=== PATIENT | female | born 1970 | race Caucasian/White ===

== ENCOUNTER 2016-11-24 14:03 | Emergency (ER) | payer BC ==
[~2016-11-24] VITALS: Ht 170.2 cm; Wt 105.0 kg
[~2016-11-24 14:03] MED LIST: AMOX-351 PO; CIPR-212 PO; OMEP40CA52 PO; RIZA10TA24 PO
--- OUTSIDE RECORDS SUMMARY | 2016-11-24 14:08 | XMS REPORT | Referral Summary ---
Author Author [facility] Organization [facility] Address Unknown Phone Unavailable Care Team Providers Care Metallurgical Or Materials Technician Name Role Phone Carol Pete Primary Care Physician [phone] Encounter VC Date(s): 04/14/16 - 04/14/16 [facility] [address] [place] [address] Discharge Diagnosis: UTI (urinary tract infection) Discharge Disposition: 01-Home or Self Care Attending Physician: Sonya French PA-C Admitting Physician: Sonya French PA-C Vital Signs Most recent to 1 oldest [Reference Range]: Temperature Tympanic 36.5 degC [36.6-38.1 degC] *LOW* (04/14/16 10:26 AM) Peripheral Pulse 64 bpm Rate [60-100 bpm] (04/14/16 10:26 AM) Respiratory Rate 18 br/min [14-20 br/min] (04/14/16 10:26 AM) Blood Pressure 92/68 mmHg [90-140/60-90 mmHg] (04/14/16 10:26 AM) Problem List Condition Effective Dates Status Health Status Informant Allergic rhinitis, Active unspecified(Confirme d) Chronic Active headache(Confirmed) Sinusitis, Active chronic(Confirmed) Thyroid Active disease(Confirmed) GERD without Active esophagitis(Confirme d) hx of proximal Active hydronephrosis(Confi rmed) Adult Active hypothyroidism(Confi rmed) Renal Active disease(Confirmed) Nephrolithiasis(Conf Active irmed) Migraine Active headaches(Confirmed) Obesity(Confirmed) Active patient hx of left Active ureterolithiasis and pain(Confirmed) Allergies, Adverse Reactions, Alerts No Known Allergies Medications Cipro 500 mg oral tablet 500 mg 1 tabs, Oral, q12hr, X 7 days, # 14 tabs, 0 Refill(s), Pharmacy: [facility] #[id number], 1 tabs Oral q12hr,x7 days Start Date: 04/14/16 Stop Date: 04/21/16 Status: Ordered Lyrica 50 mg oral capsule 50 mg 1 caps, Oral, Daily, # 21 caps, 0 Refill(s), samples given to patient (Rx) Start Date: 06/25/15 Status: Ordered Maxalt Oral, Daily, as directed, 0 Refill(s) Start Date: 05/03/15 Status: Ordered omeprazole 40 mg oral delayed release capsule 40 mg 1 caps, Oral, Daily, # 30 caps, 1 Refill(s), Pharmacy: [facility] # [id number], 1 caps Oral Daily,x30 days Start Date: 03/31/16 Stop Date: 05/30/16 Status: Ordered topiramate 25 mg oral tablet 25 mg 1 tabs, Oral, Daily, 0 Refill(s) Start Date: 05/03/15 Status: Ordered Results Urinalysis Most recent to 1 oldest [Reference Range]: UA Color Yellow (04/14/16 10:35 AM) UA Appear Sl Cloudy (04/14/16 10:35 AM) UA pH [5.0-8.0] 8.5 *HI* (04/14/16 10:35 AM) UA Leuk Est Pos 2+ [Negative] *ABN* (04/14/16 10:35 AM) UA Nitrite Negative [Negative] (04/14/16 10:35 AM) UA Protein Pos 1+ [Negative] *ABN* (04/14/16 10:35 AM) UA Glucose Negative [Negative] (04/14/16 10:35 AM) UA Ketones Negative [Negative] (04/14/16 10:35 AM) UA Urobilinogen 0.2 mg/dL [<=1.0 mg/dL] (04/14/16 10:35 AM) UA Bili [Negative] Negative (04/14/16 10:35 AM) UA Blood [Negative] Pos 3+ *ABN* (04/14/16 10:35 AM) UA Spec Grav 1.020 [1.003-1.030] (04/14/16 10:35 AM) Type Clean Catch (04/14/16 10:35 AM) UA WBC [0-4] 20-50 1 *ABN* (04/14/16 10:35 AM) UA RBC [0-2 /HPF] >50 /HPF *ABN* (04/14/16 10:35 AM) Epithelial Cells 20-50 *ABN* (04/14/16 10:35 AM) UA Bacteria Occasional *ABN* (04/14/16 10:35 AM) UA Mucous Present (04/14/16 10:35 AM) 1Result Comment: WBC in clumps noted. Immunizations Vaccine Date Refusal Reason pneumococcal 23-polyvalent vaccine 09/30/06 Procedures Procedure Date Related Diagnosis Body Site EGD 08/05/10 Cystoscopy, balloon dilatation, insertion of 12/20/08 L) dlb J stent Left lithotripsy 12/20/08 Repair of cystocele and rectocele 2004 Hysterectomy Social History Social History Type Response Smoking Status Never smoker Assessment and Plan Extracted from: Title: Ambulatory Patient Education Author: Sonya French PA-C Date : 04/14/16 Family [facility] Urinary Tract Infection Urinary tract infections (UTIs) can develop anywhere along your urinary tract. Your urinary tract is your body's drainage system for removing wastes and extra water. Your urinary tract includes two kidneys, two ureters, a bladder, and a urethra. Your kidneys are a pair of pacheco-shaped organs. Each kidney is about the size of your fist. They are located below your ribs, one on each side of your spine. CAUSES Infections are caused by microbes, which are microscopic organisms, including fungi, viruses, and bacteria. These organisms are so small that they can only be seen through a microscope. Bacteria are the microbes that most commonly cause UTIs. SYMPTOMS Symptoms of UTIs may vary by age and gender of the patient and by the location of the infection. Symptoms in young women typically include a frequent and intense urge to urinate and a painful, burning feeling in the bladder or urethra during urination. Older women and men are more likely to be tired, shaky , and weak and have muscle aches and abdominal pain. A fever may mean the infection is in your kidneys. Other symptoms of a kidney infection include pain in your back or sides below the ribs, nausea, and vomiting. DIAGNOSIS To diagnose a UTI, your caregiver will ask you about your symptoms. Your caregiver also will ask to provide a urine sample. The urine sample will be tested for bacteria and white blood cells. White blood cells are made by your body to help fight infection. TREATMENT Typically, UTIs can be treated with medication. Because most UTIs are caused by a bacterial infection, they usually can be treated with the use of antibiotics. The choice of antibiotic and length of treatment depend on your symptoms and the type of bacteria causing your infection. HOME CARE INSTRUCTIONS If you were prescribed antibiotics, take them exactly as your caregiver instructs you. Finish the medication even if you feel better after you have only taken some of the medication. Drink enough water and fluids to keep your urine clear or pale yellow. Avoid caffeine, tea, and carbonated beverages. They tend to irritate your bladder. Empty your bladder often. Avoid holding urine for long periods of time. Empty your bladder before and after sexual intercourse. After a bowel movement, women should cleanse from front to back. Use each tissue only once. SEEK MEDICAL CARE IF: You have back pain. You develop a fever. Your symptoms do not begin to resolve within 3 days. SEEK IMMEDIATE MEDICAL CARE IF: You have severe back pain or lower abdominal pain. You develop chills. You have nausea or vomiting. You have continued burning or discomfort with urination. MAKE SURE YOU: Understand these instructions. Will watch your condition. Will get help right away if you are not doing well or get worse. This information is not intended to replace advice given to you by your health care provider. Make sure you discuss any questions you have with your health care provider. Document Released: 06/03/2006 Document Revised: 09/14/2015 Document Reviewed: [facility] Patient Information 2016 [facility]. No follow up information was provided. Extracted from: Title: Office Visit Note- UTI Author: Sonya French PA-C Date: Assessment/Plan Urination frequency See below. Ordered: Office Visit Level 3 Est 39218 UTI (urinary tract infection) Will treat with Ciprox 1 week. Pt advised to monitor her pain. Possible tohave kidney stone as well. Offered pain medication, but pt would just like to take Advil. She is advised to goto ED if pain worsens. Push fluids. Ordered: Office Visit Level 3 Est 70127 Orders: ciprofloxacin, 500 mg 1 tabs, Oral, q12hr, X 7 days, # 14 tabs, 0 Refill(s), Pharmacy: [facility] #[id number], 1 tabs Oral q12hr,x7 days
--- OUTSIDE RECORDS SUMMARY | 2016-11-24 14:08 | XMS REPORT | Referral Summary ---
Author Author [facility] Organization [facility] Address Unknown Phone Unavailable Care Team Providers Care Experimental Mechanic Electrical Name Role Phone Carol Pete Primary Care Physician [phone] Encounter Date(s): 06/25/15 - 06/25/15 [facility] [address] [place] [address]- Discharge Diagnosis: Well woman exam with routine gynecological exam Discharge Diagnosis: Vaginal discharge Discharge Disposition: 01-Home or Self Care Attending Physician: Lisy Stevenson APRN Admitting Physician: Lisy Stevenson APRN Vital Signs Most recent to 1 oldest [Reference Range]: Peripheral Pulse 64 bpm Rate [60-100 bpm] (06/25/15 8:44 AM) Blood Pressure 84/52 mmHg [90-140/60-90 mmHg] *LOW* (06/25/15 8:44 AM) Problem List Condition Effective Dates Status Health Status Informant Chronic Active headache(Confirmed) GERD without Active esophagitis(Confirme d) Adult Active hypothyroidism(Confi rmed) Nephrolithiasis(Conf Active irmed) Obesity(Confirmed) Active patient Allergies, Adverse Reactions, Alerts No Known Allergies Medications Lyrica 50 mg oral capsule 50 mg 1 caps, Oral, Daily, # 21 caps, 0 Refill(s), samples given to patient (Rx) Start Date: 06/25/15 Status: Ordered Maxalt Oral, Daily, as directed, 0 Refill(s) Start Date: 05/03/15 Status: Ordered omeprazole 40 mg oral delayed release capsule See Instructions, TAKE ONE CAPSULE BY MOUTH DAILY Pt needs appointment for more refills, # 30 caps, 0 Refill(s), Pharmacy: [facility] #[id number], TAKE ONE CAPSULE BY MOUTH DAILY; Pt needs appointment for more refills Start Date: 12/26/15 Status: Ordered topiramate 25 mg oral tablet 25 mg 1 tabs, Oral, Daily, 0 Refill(s) Start Date: 05/03/15 Status: Ordered Results Microbiology Reports TEST: Genital Culture STATUS: Auth (Verified) BODY SITE: SOURCE: Vaginal COLLECTED DATE/TIME: 06/25/15 10:35 AM Genital Culture No pathogens isolated Normal vaginal eric present Immunizations No data available for this section Procedures Procedure Date Related Diagnosis Body Site Hysterectomy Social History Social History Type Response Smoking Status Never smoker Assessment and Plan No data available for this section
--- OUTSIDE RECORDS SUMMARY | 2016-11-24 14:08 | XMS REPORT | Referral Summary ---
Author Author [facility] Organization [facility] Address Unknown Phone Unavailable Care Team Providers Care Section Repairer Name Role Phone FelisasegunCarol calle Primary Care Physician [phone] Encounter Date(s): 06/25/15 - 06/25/15 [facility] [address] [place] [address]- Discharge Diagnosis: Well woman exam with routine [...] 0 Refill(s) Start Date: 05/03/15 Status: Ordered MetroGel-Vaginal 0.75% vaginal gel with applicator 1 marco, Vaginal, Bedtime (once a day), X 5 days, # 70 g, 0 Refill(s), Pharmacy: [facility] #[id number] Start Date: 06/25/15 Stop Date: 06/30/15 Status: Ordered omeprazole 40 mg oral delayed release capsule 40 mg 1 caps, Oral, Daily, # 90 caps, 1 Refill(s), Pharmacy: [facility] # [id number], 1 caps Oral Daily,x90 days Start Date: 05/03/15 Stop Date: 10/30/15 Status: Ordered topiramate 25 mg oral tablet 25 mg 1 tabs, Oral, Daily, 0 Refill(s) Start Date: 05/03/15 Status: Ordered Results No data available for this section Immunizations No data available for this section Procedures Procedure Date Related Diagnosis Body Site Hysterectomy Social History Social History Type Response Smoking Status Never smoker Assessment and Plan No data available for this section
--- OUTSIDE RECORDS SUMMARY | 2016-11-24 14:08 | XMS REPORT | Continuity of Care Document ---
Author Author [facility] Organization [facility] Address Unknown Phone Unavailable Support Name Relationship Address Phone SANJAY SOSA MD Caregiver [address] [place] [address] Unavailable SKINNY YU MD Caregiver [address] [place] [address] Unavailable CARLENE GOULD Next Of Kin [address] [place], [place] [id number] Insurance Providers Guarantor Shubham Sesay Address [address] [place] [address] Email [email or web address] Payer [employer] Other Policy Number [id number] Subscriber's Name Shubham Sesay Relationship 18 Self Group Number [id number] Chief Complaint and Reason for Visit Chief Complaint Abdominal Pain Reason for Visit Urinary tract infection Problems Active Problems Medical Problem Onset Date Status DIARRHEA, RECENT L KIDNEY STONE REMOVAL Unknown Acute Migraine Unknown Acute Past Problems Medical Problem Onset Date Urinary tract infection Unknown Medications Current Home Medications Medication Dose Units Route Directions Days Qty Instructions Start Date Amoxicillin/Potassium Clav (Augmentin 875-125 Tablet) 1 Each Tablet 1 Tab Oral Twice A Day 7 Days 14 Tablet TAKE WITH MEALS 04/15/16 Ciprofloxacin Hcl (Cipro) 500 Mg Tablet 500 Mg Oral Every 12 Hours 7 Days STARTING 04/14/16 04/15/16 Omeprazole 40 Mg Capsule. 40 Mg Oral Daily 11/26/15 Rizatriptan Benzoate (Maxalt) 10 Mg Tablet 10 Mg Oral As Needed as needed for Migraine Headache 11/26/15 Past Home Medications Medication Directions Ordered Status Ciprofloxacin Hcl (Cipro) 500 Mg Tablet, 500 Mg Oral Twice A Day 12/29/08 Discontinued Hydrocodone Bit/Acetaminophen (Lortab 7.5-500 Tablet) 1 Tab Tablet, 1 Tab Oral As Needed 12/20/08 Discontinued Hydrocodone Bit/Acetaminophen (Lortab 5) 1 Tab Tablet, 1 Tab Oral As Needed 12/29/08 Discontinued Levofloxacin (Levaquin) 750 Mg Tablet, 750 Mg Oral Daily 12/07/08 Discontinued Multi Vitamin , 12/07/08 Discontinued Phenazopyridine Hcl (Pyridium) 100 Mg Tablet, 100 Mg Oral Three Times A Day 12/29/08 Discontinued Social History Social History Problem Response Recorded Date/Time Onset Date Status Hx Substance Use No 04/15/2016 11:20am Not Applicable Not Applicable Hx Alcohol Use No 04/15/2016 11:20am Not Applicable Not Applicable Query Response Start Date Stop Date Smoking Status Former smoker Hospital Discharge Instructions No hospital discharge instructions. Plan of Care Discharge Date 04/15/16 2:22pm Disposition 01 DISCHARGED HOME, SELF-CARE Condition at Discharge Stable Instructions/Education Provided ED Abdominal Pain Prescriptions See Medication Section Referrals SANJAY SOSA MD Address: [address] [place] [address] [place] [phone] Additional Instructions/Education Stop ciprofloxacin We'll start Augmentin twice a day 7 days Follow-up with PCP Care Plan and Goals Physician Care Plan Problem: Abdominal pain with urinary tract infection Goal: Follow up with primary care provider Instructions: Take medications and follow care plan as discussed/written Functional Status No functional status results. Allergies, Adverse Reactions, Alerts Allergen Type Severity Reaction Status Last Updated Prochlorperazine Allergy Unknown Active 11/26/15 Immunizations Query Response on File Recorded Date/Time Hx Influenza Vaccination Y 10/16/13 1:12pm Hx Pneumococcal Vaccination Y 10/16/13 1:12pm Hx Influenza Vaccination Y 10/16/13 1:12pm Influenza Vaccine Hx 201504/15/16 11:20am Vital Signs Acute Vital Signs Vital Response Date/Time Temperature (Fahrenheit) 97.6 deg F (96.8 - 99.1) 04/15/2016 11:26am Temperature (Calculated Celsius) 36.64542 degrees C (36.0 - 37.3) 04/15/2016 11:26am Pulse Rate (adult) 57 bpm (60 - 100) 04/15/2016 2:26pm Respiratory Rate 16 breaths/min (10 - 20) 04/15/2016 2:26pm O2 Sat by Pulse Oximetry 100 % (90 - 100) 04/15/2016 2:26pm Blood Pressure 123/76 mm Hg 04/15/2016 2:26pm Height (Feet) 5 feet 04/15/2016 11:26am Height (Inches) 7.00 inches 04/15/2016 11:26am Weight (Kilograms) 85.500 kg 04/15/2016 11:26am Body Mass Index (BMI) 29.0 04/15/2016 11:26am Results Laboratory Results Test Name Result Units Flags Reference Collection Date/Time Result Date/ Time Comments White Blood Count 6.3 T/MM3 4.5-11.0 04/15/2016 12:01pm 04/15/2016 12: 09pm Red Blood Count 4.73 M/MM3 4.00-5.20 04/15/2016 12:01pm 04/15/2016 12: 09pm Hemoglobin 14.3 GM/DL 12-16 04/15/2016 12:01pm 04/15/2016 12:09pm Hematocrit 43.6 % 36-46 04/15/2016 12:01pm 04/15/2016 12:09pm Mean Corpuscular Volume 92.2 UM3 80-100 04/15/2016 12:01pm 04/15/2016 12:09pm Mean Corpuscular Hemoglobin 30.2 UUG 26-34 04/15/2016 12:01pm 2015 12:09pm Mean Corpuscular Hemoglobin Concent 32.8 GM/DL 31-37 04/15/2016 12:01pm 04/15/2016 12:09pm RDW Standard Deviation 40.4 FL 36.9-50.2 04/15/2016 12:01pm 04/15/2016 12:09pm Platelet Count 263 T/MM3 130-400 04/15/2016 12:01pm 04/15/2016 12:09pm Mean Platelet Volume 9.2 UM3 L 9.4-12.4 04/15/2016 12:01pm 04/15/2016 12 :09pm Neutrophils (%) (Auto) 69.5 % H 33-66 04/15/2016 12:01pm 04/15/2016 12: 09pm Lymphocytes (%) (Auto) 16.9 % L 23-45 04/15/2016 12:01pm 04/15/2016 12: 09pm Monocytes (%) (Auto) 12.2 % H 0-9.0 04/15/2016 12:01pm 04/15/2016 12: 09pm Eosinophils (%) (Auto) 0.9 % 0-4 04/15/2016 12:01pm 04/15/2016 12:09pm Basophils (%) (Auto) 0.3 % 0-2 04/15/2016 12:01pm 04/15/2016 12:09pm Immature Granulocyte % (Auto) 0.2 % 0.0-0.5 04/15/2016 12:01pm 2015 12:09pm Absolute Neutrophils (auto) 4.4 T/MM3 1.8-7.7 04/15/2016 12:01pm 2015 12:09pm Absolute Lymphocytes (auto) 1.1 T/MM3 1-4.8 04/15/2016 12:01pm 2015 12:09pm Absolute Monocytes (auto) 0.8 T/MM3 0-0.8 04/15/2016 12:01pm 2015 12:09pm Absolute Eosinophils (auto) 0.1 T/MM3 0-0.5 04/15/2016 12:01pm 2015 12:09pm Absolute Basophils (auto) 0.0 T/MM3 0-0.2 04/15/2016 12:01pm 2015 12:09pm Absolute Immature Granulocyte (auto 0.01 T/MM3 0.00-0.03 04/15/2016 12: 01pm 04/15/2016 12:09pm Icterus Index < 2 0-7 04/15/2016 12:01pm 04/15/2016 12:18pm Chemistry Specimen Hemolysis < 15 0-25 04/15/2016 12:01pm 04/15/2016 12:18pm 0-25: Specimen Exhibited No Hemolysis. Turbidity < 20 0-20 04/15/2016 12:01pm 04/15/2016 12:18pm Sodium Level 146 MEQ/L H 134-144 04/15/2016 12:01pm 04/15/2016 12:18pm Potassium Level 4.1 MEQ/L 3.6-5 04/15/2016 12:01pm 04/15/2016 12:18pm Chloride Level 109 MEQ/L H 98-107 04/15/2016 12:01pm 04/15/2016 12:18pm Carbon Dioxide Level 25 MEQ/L 22-30 04/15/2016 12:01pm 04/15/2016 12: 18pm Anion Gap 12 MEQ/L 5-15 04/15/2016 12:01pm 04/15/2016 12:18pm Blood Urea Nitrogen 17.0 MG/DL 7-17 04/15/2016 12:01pm 04/15/2016 12: 18pm Creatinine 1.7 MG/DL H 0.7-1.2 04/15/2016 12:01pm 04/15/2016 12:18pm BUN/Creatinine Ratio 10 RATIO 6-26 04/15/2016 12:01pm 04/15/2016 12: 18pm Glomerular Filtration Rate Calc 32 04/15/2016 12:01pm 04/15/2016 12 :18pm Glucose Level 93 MG/DL 65-110 04/15/2016 12:01pm 04/15/2016 12:18pm Calculated Osmolality 283 MOSM/KG H 261-280 04/15/2016 12:01pm 2015 12:18pm Calcium Level 9.6 MG/DL 8.4-10.2 04/15/2016 12:01pm 04/15/2016 12:18pm Total Bilirubin 0.80 MG/DL 0.20-1.30 04/15/2016 12:01pm 04/15/2016 12: 18pm Alkaline Phosphatase 90 U/L 38-126 04/15/2016 12:01pm 04/15/2016 12: 18pm Total Protein 8.1 G/DL 6.3-8.2 04/15/2016 12:01pm 04/15/2016 12:18pm Albumin 4.3 G/DL 3.5-5.0 04/15/2016 12:01pm 04/15/2016 12:18pm Globulin 3.8 G/DL H 2.4-3.6 04/15/2016 12:01pm 04/15/2016 12:18pm Albumin/Globulin Ratio 1.1 RATIO 1.1-2.2 04/15/2016 12:01pm 04/15/2016 12:18pm Aspartate Amino Transf (AST/SGOT) 31 U/L 14-36 04/15/2016 12:01pm 04/15 12:18pm Alanine Aminotransferase (ALT/SGPT) 18 U/L 9-52 04/15/2016 12:01pm 05/2016 12:18pm Lipase 41 U/L 23-300 04/15/2016 12:01pm 04/15/2016 12:18pm Urine Collection Type VOIDED-NOT CC-MIDSTR 04/15/2016 12:08pm 04/15 12:24pm Urine Color YELLOW YELLOW 04/15/2016 12:08pm 04/15/2016 12:24pm Urine Turbidity CLEAR CLEAR 04/15/2016 12:08pm 04/15/2016 12:24pm Urine Specific [place] <=1.005 L 1.015-1.025 04/15/2016 12:08pm 2015 12:24pm Urine pH 6.0 5.0-8.0 04/15/2016 12:08pm 04/15/2016 12:24pm Urine Leukocyte Esterase NEGATIVE NEGATIVE 04/15/2016 12:08pm 2015 12:24pm Urine Nitrite NEGATIVE NEGATIVE 04/15/2016 12:08pm 04/15/2016 12: 24pm Urine Protein TRACE A NEGATIVE 04/15/2016 12:08pm 04/15/2016 12:24pm Urine Glucose (UA) NEGATIVE NEGATIVE 04/15/2016 12:08pm 04/15/2016 12 :24pm Urine Ketones NEGATIVE NEGATIVE 04/15/2016 12:08pm 04/15/2016 12: 24pm Urine Urobilinogen 0.2 EU/DL NORMAL 04/15/2016 12:08pm 04/15/2016 12: 24pm Urine Bilirubin NEGATIVE NEGATIVE 04/15/2016 12:08pm 04/15/2016 12: 24pm Urine Blood 2+ A NEGATIVE 04/15/2016 12:08pm 04/15/2016 12:24pm Urine WBC 1-3 /HPF 0-5 04/15/2016 12:08pm 04/15/2016 12:42pm Urine RBC 1-3 /HPF 0-3 04/15/2016 12:08pm 04/15/2016 12:42pm Urine Squamous Epithelial Cells 10-20 04/15/2016 12:08pm 2015 12:42pm Urine Bacteria 1+ H NEGATIVE 04/15/2016 12:08pm 04/15/2016 12:42pm Urine Culture Indicated CULT NOT INDICATED 04/15/2016 12:08pm 04/15 12:42pm Name: SHUBHAM SESAY Unit #: [id number] : 1970 Sex: F Admit Date: Loc / Svc: ED Discharge Date: DIAGNOSTIC IMAGING REPORT Report #: [id number] [facility] [place] Indication: ITS.REASON: flank pain history of stones PROCEDURE: CT RENAL W/O CONTRAST: Encounter: Initial Comparison: Renal CT dated May 29, 2008 Technique: Axial CT images were performed through the abdomen and pelvis without intravenous contrast. Coronal and sagittal two-dimensional reformats. Findings: The lung bases are clear. Small hiatal hernia. The unenhanced contours of the liver are unremarkable. The gallbladder, spleen, pancreas and adrenal glands are normal. The left kidney appears normal. No left ureteral stone. Bladder is normal. Small nonobstructing 2 mm upper pole stone on the right. No evidence of right-sided hydronephrosis or right ureteral stone. No abdominal or pelvic lymphadenopathy. No free fluid. Uterus is surgically absent. No evidence of a bowel obstruction. Colon is decompressed distally. The appendix is normal. Bone windows are unremarkable for age. Impression: No clear etiology for the patient's flank pain. Small nonobstructing right renal stone. . Procedures No known history of procedures. Encounters Encounter Location Arrival/Admit Date Discharge/Depart Date Attending Provider Departed Emergency Room [facility] 04/15/16 11:11am 04/15/16 2: 22pm SKINNY YU MD Recent Diagnosis
--- OUTSIDE RECORDS SUMMARY | 2016-11-24 14:08 | XMS REPORT | Continuity of Care Document ---
Author Author [facility] Address Unknown Phone Unavailable Care Team Providers Care Facility Supervisor Name Role Phone Fran Pete PP Unavailable Payers Payer name Insurance type Covered green party ID Authorization(s) Unknown Problems Condition Effective Dates (start - stop) Clinical Status Abdominal Pain - Intermittent Pain in joint involving lower leg - *Acute CHRONIC SINUSITIS NOS - ALLERGIC RHINITIS NOS - Chest Pain, Unspecified - *Chronic Headache - *Chronic Hypothyroidism - *Chronic Overweight - *Chronic Dysfunction of eustachian tube - *Chronic Allergic rhinitis, cause unspecified - *Chronic GERD - *Chronic Family History Family Member Diagnosis Age At Onset Status Mother (Unknown) Alive and well (Unknown) Father (Unknown) Alive and well (Unknown) Social History Social History Element Description Quantity Unknown Allergies, Adverse Reactions, Alerts Substance Reaction Severity Status Unknown Medications Medication Instructions Dosage Effective Dates (start - stop) Status Take 1 tablet by mouth every 4 to 6 hours as needed for nausea and vomiting. - Active levothyroxine 25 mcg tablet take 1 tablet (25MCG) by oral route every day 25 MCG - Active Maxalt 10 mg tablet Take 1 tab po for migraine, if does not help may take 1 more at least 2 hours after first dose. Do not take more than 30 mg in 24 hours. - Active Immunizations Vaccine Date Status Comments Unknown Results Test Name Date and Time Measure Units Reference Range Abnormal Flag Comments Panel Description: Urinalysis with Reflex Microscopic Site. 11:22:00 Midstream Color 11:22:00 Straw Clarity 11:22:00 Clear Volume Centrifuged 11:22:00 12 mls Specific [place]-C 11:22:00 1.010 1.005-1.025 pH-C 11:22:00 7 5.0-8.0 Leukocytes-C 11:22:00 Negative Rob/uL Negative Nitrites-C 11:22:00 Negative Negative Protein-C 11:22:00 Negative mg/dL Negative DB-Toloerb-K 11:22:00 Normal mg/dL Normal Ketones-C 11:22:00 Negative mg/dL Negative Urobilinogen- 11:22:00 Normal mg/dL Normal Bilirubin-C 11:22:00 Negative mg/dL Negative Blood-C 11:22:00 Negative Oniel/uL Negative Panel Description: Culture If Indicated With Sensitivity Culture If Indicated With Sensitivity 11:22:00 No Culture Indicated Vital Signs Date / Time: Height Weight Pulse Rate Blood Pressure Temperature /10:45:00 67.00 in 208.00 lbs 122/80 mm[Hg] 98.4 F Procedures Procedure Date Unknown Encounters Encounter Location Date Patient Visit [facility] Patient Visit Conversion Patient Visit [facility] Advance Directives Directive Effective Date Unknown
--- OUTSIDE RECORDS SUMMARY | 2016-11-24 14:08 | XMS REPORT | Continuity of Care Document ---
Author Author [facility] Organization [facility] Address Unknown Phone Unavailable Allergies Active Description Code Type Severity Reaction Onset Reported/Identified Relationship to Patient Clinical Status Yes No Known Allergies No Known Allergies Drug Allergy Unknown N/A 09/11/2014 Medications Problems Date Dx Coded Attending Type Code Diagnosis Diagnosed By 08/18/2014 Marcela Meléndez V76.12 OTH SCREEN MAMMO-MALIGN NEOPLASM OF BREAST 09/11/2014 Stephen Rooj W 034.0 STREP SORE THROAT 09/11/2014 Stephen Rojo W 346.90 MIGRAINE UNSPECIFIED W/O INTRACT MGRN W/O STATUS M 09/11/2014 Stephen Rojo A 784.0 HEADACHE Procedures Results Test Result Range CBC WITH DIFFERENTIAL - 09/11/14 14:05 WHITE BLOOD CELL 4.7 k/cumm 4.8-10.8 RED BLOOD CELL 4.53 m/cumm 4.2-5.4 HEMOGLOBIN 14.3 gm/dL 12.0-16.0 HEMATOCRIT 42.4 % 37-47 MEAN CELL VOLUME 93.6 fl 81-99 MEAN CELL HGB 31.6 pg 27-31 MEAN CELL HGB CONCENTRATION 33.7 g/dL 33.0-37.0 RED CELL DISTRIBUTION WIDTH 12.8 % 11.5- 14.5 PLATELET COUNT 329 k/cumm 130-400 NEUTROPHIL % 40.7 % 43-65 LYMPHOCYTE % 44.8 % 20-45 MONOCYTE % 11.8 % 5-12 EOSINOPHIL % 2.1 % 0.9-2.9 BASOPHIL % 0.6 % 0.25-1.0 ABSOLUTE NEUTROPHIL # 1.89 k/cumm 2.2- 4.8 LYMPHOCYTE # 2.1 k/cumm 1.3-2.9 MONOCYTE # 0.6 k/cumm 0.31-0.83 EOSINOPHIL # 0.1 k/cumm 0.05-0.22 BASOPHIL # 0.0 k/cumm 0.02-0.06 DIFFERENTIAL/MORPHOLOGY AUTO DIFF Performing Location: INFECTIOUS MONO SCREEN - 09/11/14 14:05 Performing Location: INFECTIOUS MONO SCREEN NEGATIVE NEGATIVE METABOLIC PANEL, COMPREHN - 09/11/14 14:05 Performing Location: SODIUM 142 mmol/L 135-145 POTASSIUM 4.4 mmol/L 3.6-5.2 CHLORIDE 106 mmol/L 100-108 CARBON DIOXIDE 27.5 mmol/L 21.0-32.0 ANION GAP 13 mmol/L 10-20 GLUCOSE 90 mg/dL 70-110 BLOOD UREA NITROGEN 12 mg/dL 7-22 CREATININE 0.8 mg/dL 0.6-1.0 BUN/CREATININE RATIO 15.0 GLOMERULAR FILTRATION RATE 82.23 CALCIUM 9.3 mg/dL 8.7-10.5 TOTAL PROTEIN 7.6 gm/dL 6.0-8.0 ALBUMIN 3.2 gm/dL 3.5-5.0 GLOBULIN 4.4 gm/dL 2.1-3.5 ALBUMIN/GLOBULIN RATIO 0.7 1.1-2.2 BILIRUBIN TOTAL 0.5 mg/dL 0.0-1.0 SGOT/AST 31 UNIT/L 15-37 SGPT/ALT 28 UNIT/L 12-78 ALKALINE PHOSPHATASE TOTAL 97 UNIT/L 46- 116 ESTIMATED CREATINE CLEARANCE 77 C REACTIVE PROTEIN, QUANTITATV - 09/11/14 14:05 Performing Location: C REACTIVE PROTEIN, QUANTITATV 0.37 mg/dL 0-0.8 Encounters ACCT No. Visit Date/Time Discharge Status Pt. Type Provider Facility Loc./Unit Complaint [id number] 09/22/2013 10:41:00 09/22/2013 23 :59:59 CLS Outpatient
--- OUTSIDE RECORDS SUMMARY | 2016-11-24 14:08 | XMS REPORT | Referral Summary ---
Author Author [facility] Organization [facility] Address Unknown Phone Unavailable Care Team Providers Care Food Production Supervisor Name Role Phone Carol Pete Primary Care Physician [phone] Encounter VC Date(s): 04/17/16 - 04/17/16 [facility] [address] [place] [address]- Discharge Disposition: 01-Home or Self Care Attending Physician: Fran Pete MD Admitting Physician: Fran Pete MD Vital Signs Most recent to 1 oldest [Reference Range]: Blood Pressure 120/70 mmHg [90-140/60-90 mmHg] (04/17/16 1:14 PM) Problem List Condition Effective Dates Status Health Status Informant Allergic rhinitis, Active unspecified(Confirme d) Abnormal blood Active sugar(Confirmed) Chronic Active headache(Confirmed) Sinusitis, Active chronic(Confirmed) Thyroid Active disease(Confirmed) GERD without Active esophagitis(Confirme d) hx of proximal Active hydronephrosis(Confi rmed) Adult Active hypothyroidism(Confi rmed) Renal Active disease(Confirmed) Nephrolithiasis(Conf Active irmed) Migraine Active headaches(Confirmed) Obesity(Confirmed) Active patient hx of left Active ureterolithiasis and pain(Confirmed) Allergies, Adverse Reactions, Alerts No Known Allergies Medications Cipro 500 mg oral tablet 500 mg 1 tabs, Oral, q12hr, # 20 tabs, 0 Refill(s) Start Date: 04/17/16 Stop Date: 04/27/16 Status: Ordered Maxalt 10 mg oral tablet 10 mg 1 tabs, Oral, Daily, as needed for migraine headache, as directed, # 12 tabs, 1 Refill(s), Pharmacy: [facility] #[id number], 1 tabs Oral Daily,PRN:as needed for migraine headache,Instr:as directed Start Date: 04/17/16 Status: Ordered omeprazole 40 mg oral delayed release capsule 40 mg 1 caps, Oral, Daily, # 90 caps, 1 Refill(s), Pharmacy: [facility] # [id number], 1 caps Oral Daily Start Date: 04/17/16 Status: Ordered Zofran 4 mg oral tablet 4 mg 1 tabs, Oral, q12hr, # 20 tabs, 0 Refill(s), Pharmacy: [facility] # [id number], 1 tabs Oral q12hr Start Date: 04/17/16 Status: Ordered Results Chemistry Most recent to 1 oldest [Reference Range]: Estimated Creatinine 90.55 mL/min Clearance (04/17/16 1:16 PM) Immunizations Vaccine Date Refusal Reason pneumococcal 23-polyvalent vaccine 09/30/06 Procedures Procedure Date Related Diagnosis Body Site EGD 08/05/10 Cystoscopy, balloon dilatation, insertion of 12/20/08 L) dlb J stent Left lithotripsy 12/20/08 Repair of cystocele and rectocele 2003 Hysterectomy Social History Social History Type Response Smoking Status Never smoker Assessment and Plan Extracted from: Title: Ambulatory Patient Education Author: Fran Pete MD Date: 07/23 Family Medicine Gastroesophageal Reflux Disease, Adult Gastroesophageal reflux disease (GERD) happens when acid from your stomach flows up into the esophagus. When acid comes in contact with the esophagus, the acid causes soreness (inflammation) in the esophagus. Over time, GERD may create small holes (ulcers) in the lining of the esophagus. CAUSES Increased body weight. This puts pressure on the stomach, making acid rise from the stomach into the esophagus. Smoking. This increases acid production in the stomach. Drinking alcohol. This causes decreased pressure in the lower esophageal sphincter (valve or ring of muscle between the esophagus and stomach), allowing acid from the stomach into the esophagus. Late evening meals and a full stomach. This increases pressure and acid production in the stomach. A malformed lower esophageal sphincter. Sometimes, no cause is found. SYMPTOMS Burning pain in the lower part of the mid-chest behind the breastbone and in the mid-stomach area. This may occur twice a week or more often. Trouble swallowing. Sore throat. Dry cough. Asthma-like symptoms including chest tightness, shortness of breath, or wheezing. DIAGNOSIS Your caregiver may be able to diagnose GERD based on your symptoms. In some cases, X-rays and other tests may be done to check for complications or to check the condition of your stomach and esophagus. TREATMENT Your caregiver may recommend [id number]-[id number] or prescription medicines to help decrease acid production. Ask your caregiver before starting or adding any new medicines. HOME CARE INSTRUCTIONS Change the factors that you can control. Ask your caregiver for guidance concerning weight loss, quitting smoking, and alcohol consumption. Avoid foods and drinks that make your symptoms worse, such as: Caffeine or alcoholic drinks. Chocolate. Peppermint or mint flavorings. Garlic and onions. Spicy foods. [employer] fruits, such as oranges, serge, or limes. Tomato-based foods such as sauce, chili, salsa, and pizza. Fried and fatty foods. Avoid lying down for the 3 hours prior to your bedtime or prior to taking a nap. Eat small, frequent meals instead of large meals. Wear loose-fitting clothing. Do not wear anything tight around your waist that causes pressure on your stomach. Raise the head of your bed 6 to 8 inches with wood blocks to help you sleep. Extra pillows will not help. Only take [id number] or prescription medicines for pain, discomfort , or fever as directed by your caregiver. Do not take aspirin, ibuprofen, or other nonsteroidal anti-inflammatory drugs (NSAIDs). SEEK IMMEDIATE MEDICAL CARE IF: You have pain in your arms, neck, jaw, teeth, or back. Your pain increases or changes in intensity or duration. You develop nausea, vomiting, or sweating (diaphoresis). You develop shortness of breath, or you faint. Your vomit is green, yellow, black, or looks like coffee grounds or blood. Your stool is red, bloody, or black. These symptoms could be signs of other problems, such as heart disease, gastric bleeding, or esophageal bleeding. MAKE SURE YOU: Understand these instructions. Will watch your condition. Will get help right away if you are not doing well or get worse. This information is not intended to replace advice given to you by your health care provider. Make sure you discuss any questions you have with your health care provider. Document Released: 06/03/2006 Document Revised: 09/14/2015 Document Reviewed: [facility] Patient Information 2016 [facility]. No follow up information was provided. Extracted from: Title: Office Visit Note Author: Fran Pete MD Date: 04/17/16 Assessment/Plan Abnormal blood sugar This issue was reviewed, appears stable, and current therapy continued except as mentioned. Appropriate lab was reviewed from the most recent appropriate entry and lab was ordered if needed in the cpoe/nursing orders, and follow up recommended generally in 90 days and no later then six months. Lab stable. Acute UTI The patient's issue is nearly or completely resolved. There is no further issues or testing desired by them at this time. A work/school note was offered and deferred by the patient. The patient's outside physician records were reviewed. Any pertinent outside records, lab, and xrays were also reviewed if available. See ER records. Adult hypothyroidism This issue was reviewed, appears stable, and current therapy continued except as mentioned. Appropriate lab was reviewed from the most recent appropriate entry and lab was ordered if needed in the cpoe/nursing orders, and follow up recommended generally in 90 days and no later then six months. Lab pending. Chronic headache This issue was reviewed, appears stable, and current therapy continued except as mentioned. Appropriate lab was reviewed from the most recent appropriate entry and lab was ordered if needed in the cpoe/nursing orders, and follow up recommended generally in 90 days and no later then six months. GERD without esophagitis This issue was reviewed, appears stable, and current therapy continued except as mentioned. Appropriate lab was reviewed from the most recent appropriate entry and lab was ordered if needed in the cpoe/nursing orders, and follow up recommended generally in 90 days and no later then six months. Nephrolithiasis The patient's issue is nearly or completely resolved. There is no further issues or testing desired by them at this time.
--- OUTSIDE RECORDS SUMMARY | 2016-11-24 14:09 | XMS REPORT | Referral Summary ---
Author Author [facility] Organization [facility] Address Unknown Phone Unavailable Care Team Providers Care Lehr Tender Name Role Phone Carol Pete Primary Care Physician [phone] Encounter VC Date(s): 05/03/15 - 05/03/15 [facility], [address] [place] [address] Discharge Disposition: 01-Home or Self Care Attending Physician: Fran Pete MD Admitting Physician: Fran Pete MD Vital Signs Most recent to 1 oldest [Reference Range]: Blood Pressure 100/80 mmHg [90-140/60-90 mmHg] (05/03/15 2:20 PM) Problem List Condition Effective Dates Status [...] Daily, # 90 caps, 1 Refill(s), Pharmacy: [facility] # [id number], 1 caps Oral Daily,x90 days Start Date: 05/03/15 Stop Date: 10/30/15 Status: Ordered topiramate 25 mg oral tablet 25 mg 1 tabs, Oral, Daily, 0 Refill(s) Start Date: 05/03/15 Status: Ordered Results Hematology Most recent to 1 oldest [Reference Range]: WBC [4.8-10.8 6.5 10*3/uL 10*3/uL] (05/03/15 3:00 PM) RBC [4.00-5.20] 4.60 (05/03/15 3:00 PM) Hgb [12.0-16.0 14.2 gm/dL gm/dL] (05/03/15 3:00 PM) Hct [37.0-47.0 %] 42.2 % (05/03/15 3:00 PM) MCV [82.0-99.0 fL] 91.7 fL (05/03/15 3:00 PM) MCH [27.0-32.0 pg] 30.9 pg (05/03/15 3:00 PM) MCHC [32.0-36.0 33.6 gm/dL gm/dL] (05/03/15 3:00 PM) RDW [11.5-14.5 %] 12.5 % (05/03/15 3:00 PM) Platelet [150-400 292 10*3/uL 10*3/uL] (05/03/15 3:00 PM) MPV [8.8-14.8 fL] 9.9 fL (05/03/15 3:00 PM) Immature 0.0 % Granulocytes (05/03/15 3:00 PM) [0.0-1.0 %] Neutrophils [51-75 71 % %] (05/03/15 3:00 PM) Lymphocytes [20-46 19 % %] *LOW* (05/03/15 3:00 PM) Monocytes [4-11 %] 8 % (05/03/15 3:00 PM) Eosinophils [0-4 %] 1 % (05/03/15 3:00 PM) Basophils [0-2 %] 0 % (05/03/15 3:00 PM) Neutro Absolute 4.63 10*3 [1.90-7.00 10*3] (05/03/15 3:00 PM) Lymph Absolute 1.25 10*3 [0.80-3.30 10*3] (05/03/15 3:00 PM) [place] Absolute 0.53 10*3 [0.30-1.00 10*3] (05/03/15 3:00 PM) Eos Absolute 0.05 10*3 [0.00-0.50 10*3] (05/03/15 3:00 PM) Baso Absolute 0.02 10*3 [0.00-0.20 10*3] (05/03/15 3:00 PM) Chemistry Most recent to 1 oldest [Reference Range]: Sodium Lvl [135-144 140 mEq/L mEq/L] (05/03/15 3:00 PM) Potassium Lvl 4.3 mEq/L [3.5-5.2 mEq/L] (05/03/15 3:00 PM) Chloride [99-111 109 mEq/L mEq/L] (05/03/15 3:00 PM) CO2 [22-31 mEq/L] 26 mEq/L (05/03/15 3:00 PM) AGAP [3-20] 5 (05/03/15 3:00 PM) BUN [7-19 mg/dL] 14 mg/dL (05/03/15 3:00 PM) Glucose Lvl [70-99 104 mg/dL mg/dL] *HI* (05/03/15 3:00 PM) Creatinine Lvl 0.69 mg/dL [0.57-1.11 mg/dL] (05/03/15 3:00 PM) eGFR [>60 mL/min] >60 mL/min 1 (05/03/15 3:00 PM) Calcium Lvl 9.5 mg/dL [8.9-10.5 mg/dL] (05/03/15 3:00 PM) Albumin Lvl [3.5-5.0 4.0 gm/dL gm/dL] (05/03/15 3:00 PM) Total Protein 7.2 gm/dL [6.4-8.3 gm/dL] (05/03/15 3:00 PM) Globulin [1.8-4.0 3.2 gm/dL gm/dL] (05/03/15 3:00 PM) ALT [0-55 U/L] 20 U/L (05/03/15 3:00 PM) AST [5-34 U/L] 22 U/L (05/03/15 3:00 PM) Alk Phos [40-150 81 U/L U/L] (05/03/15 3:00 PM) Bili Total [0.2-1.2 0.5 mg/dL mg/dL] (05/03/15 3:00 PM) TSH with Reflex Free 2.89 T4 [0.35-4.94] (05/03/15 3:00 PM) 1Result Comment: Multiply eGFR results by 1.21 for race. Immunizations No data available for this section Procedures Procedure Date Related Diagnosis Body Site Collection of venous blood by venipuncture 05/03/15 Hysterectomy Social History Social History Type Response Smoking Status Never smoker Assessment and Plan Extracted from: Title: Ambulatory Patient Education Author: Fran Pete MD Date: Family Medicine Antibiotic Nonuse Your caregiver felt that the infection or problem was not one that would be helped with an antibiotic. Infections may be caused by viruses or bacteria. Only a caregiver can tell which one of these is the likely cause of an illness. A cold is the most common cause of infection in both adults and children. A cold is a virus. Antibiotic treatment will have no effect on a viral infection. Viruses can lead to many lost days of work caring for sick children and many missed days of school. Children may catch as many as 10 "colds" or "flus" per year during which they can be tearful, cranky, and uncomfortable. The goal of treating a virus is aimed at keeping the ill person comfortable. Antibiotics are medications used to help the body fight bacterial infections. There are relatively few types of bacteria that cause infections but there are hundreds of viruses. While both viruses and bacteria cause infection they are very different types of germs. A viral infection will typically go away by itself within 7 to 10 days. Bacterial infections may spread or get worse without antibiotic treatment. Examples of bacterial infections are: Sore throats (like strep throat or tonsillitis). Infection in the lung (pneumonia). Ear and skin infections. Examples of viral infections are: Colds or flus. Most coughs and bronchitis. Sore throats not caused by Strep. Runny noses. It is often best not to take an antibiotic when a viral infection is the cause of the problem. Antibiotics can kill off the helpful bacteria that we have inside our body and allow harmful bacteria to start growing. Antibiotics can cause side effects such as allergies, nausea, and diarrhea without helping to improve the symptoms of the viral infection. Additionally, repeated uses of antibiotics can cause bacteria inside of our body to become resistant. That resistance can be passed onto harmful bacterial. The next time you have an infection it may be harder to treat if antibiotics are used when they are not needed. Not treating with antibiotics allows our own immune system to develop and take care of infections more efficiently. Also, antibiotics will work better for us when they are prescribed for bacterial infections. Treatments for a child that is ill may include: Give extra fluids throughout the day to stay hydrated. Get plenty of rest. Only give your child kkio-hwb-mamdzli or prescription medicines for pain, discomfort, or fever as directed by your caregiver. The use of a cool mist humidifier may help stuffy noses. Cold medications if suggested by your caregiver. Your caregiver may decide to start you on an antibiotic if: The problem you were seen for today continues for a longer length of time than expected. You develop a secondary bacterial infection. SEEK MEDICAL CARE IF: Fever lasts longer than 5 days. Symptoms continue to get worse after 5 to 7 days or become severe. Difficulty in breathing develops. Signs of dehydration develop (poor drinking, rare urinating, dark colored urine). Changes in behavior or worsening tiredness (listlessness or lethargy). Document Released: 11/02/2002 Document Revised: 11/15/2012 Document Reviewed: [employer] Patient Information 2015 [employer] [place]. This information is not intended to replace advice given to you by your health care provider. Make sure you discuss any questions you have with your health care provider. No follow up information was provided. Extracted from: Title: Office Visit Note Author: Fran Pete MD Date: 05/03/15 Assessment/Plan Adult hypothyroidism This issue is stable and appropriate refills, lab, and f/ u have been discussed. Out of meds for 30 days, lab pending. The patient has family members present who are agreeable with today's plan and have no additional concerns or requests. Daughter here. RTW note given. Chronic headache This issue is stable and appropriate refills, lab, and f/u have been discussed. Demerol 50mg IM w/phen 50mg for n/v and headaches today. Diarrhea See above. Zofran 4mg po bid prn, imodium po bid prn. C-diff pending due to her workenvironment.Flagyl 500mg po bid for ten days if diarrhea is not improving. GERD without esophagitis This issue is stable and appropriate refills, lab, and f/u have been discussed. N&V (nausea and vomiting) See above. Nephrolithiasis The patient's issue is nearly or completely resolved. There is no further issues or testing desired by them at this time. Stop topamax.
[2016-11-24 14:10] VITALS: TEMP 97.6; Ht 170.2 cm; Wt 105.0 kg
[2016-11-24] MEDS ORDERED: ONDA4TAB7 PO (14:54)
--- NOTE | 2016-11-24 15:01 | ERPDOC ---
Departure Disposition Decision Date: Nov 24, 2016 Disposition Decision Time: 15:48 Disposition: 01 DISCHARGED HOME, SELF-CARE Impression Impression Impression: Primary Impression: Migraine equivalent Severity: Moderate Condition: Improved Seen By: Mid-level only Referrals: SANJAY SOSA MD (Family) Patient Instructions: Migraine Headache (ED) Problems/Meds/Labs Reviewed?: Yes Medications reviewed and manag: Yes Additional Instructions: Rest in dark room. Avoid loud noise/lights. Stay hydrated. Follow treatment plan. You may take already prescribed Maxalt. Follow with your PCP if symptoms persistent. Follow up care ordered?: Yes Mental Status: Alert, Oriented HPI - Headache General Chief Complaint: Headache Stated Complaint: MIGRAINE/VOMITING Time Seen by Provider: 15:01 Source: patient HPI - Headache Initial Comments 45-year-old female presents to ER with headachr that started at 0600 this morning patient with accompanying nausea and vomiting. 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 Took her prescribed Zofran and Maxalt without any relief this morning. Admits nausea, phono/photophobia. Pain Scale: Now: 10/10 Severity/Quality: throbbing 1 - reports pain Prior Headaches/Recent Trauma: frequent headaches Associated Symptoms: DENIES: confusion, facial pain, fatigue, fever/chills, flushing, loss of consciousness, nasal congestion, nasal drainage, nausea/ vomiting, numbness in legs/feet, other (ataxia), rash, seizures, sinus infection , stiff neck, vision changes, weakness Allergies: Coded Allergies: prochlorperazine (Verified Allergy, Unknown, 11/24/16) Past History Past Medical History Metabolic: DENIES: diabetes Cardiac: DENIES: angina Respiratory: DENIES: asthma GI: GERD Female: UTI, kidney stones Neurological: headaches, migraines, DENIES: seizures Musculoskeletal: DENIES: rheumatoid arthritis Psychological: DENIES: depression Surgical History Reproductive/: hysterectomy, other (stent, lithotripsy) Family History Family PMH: FOUND: other (noncontributory) Vaccines Hx Influenza Vaccination: Yes (08) Hx Pneumococcal Vaccination: Yes (CURRENTLY) Social History Substance Use Type: does not use Alcohol Intake: none Sexuality: male partner Review of Systems Constitutional Constitutional: DENIES: chills, dizziness, fever, weakness Eyes General: photophobia, DENIES: erythema, exudate Lids/Accessories: DENIES: erythema, swelling Vision: DENIES: blurring ENMT Ears: DENIES: pain Sinuses: DENIES: congestion, rhinorrhea Mouth/Throat: DENIES: sore throat Cardiovascular Cardiac: DENIES: chest pain Pulmonary Respiratory: DENIES: cough, dyspnea GI Upper Abdomen: nausea, DENIES: pain, vomiting Lower Abdomen: DENIES: diarrhea, pain General: DENIES: dysuria, pain Musculoskeletal General: DENIES: joint pain, pain, tenderness Integumentary Skin: DENIES: color change, itching, rash Neurological General: headache, see HPI, DENIES: ataxia, change in strength, numbness, paralysis/paresis, weakness Psychiatric Psychiatric: DENIES: anxiety, depression, nervousness Physical Exam General General Nourishment: well nourished, well developed, no acute distress, adult General Body Habitus: well groomed Vitals and Pain First Documented Vital Signs Date Time Temp Pulse Resp B/P Pulse Ox O2 Delivery O2 Flow Rate FiO2 11/24/16 14:10 97.6 79 20 127/67 98 Room Air Weight: Kilograms: 105.000 Height (feet): 5 Height (inches): 7.00 Triage Pain Scale: Eyes (brief) Eyes Brief: found: EOMI, PERRL ENMT (brief) ENMT Brief: FOUND: TM clear, TM good light reflex, mucosa moist, NOT FOUND: nasal exudate, nasal swelling, pharnyx erythema Neck (brief) Neck: FOUND: trachea midline, NOT FOUND: adenopathy, spasm, tenderness, thyromegaly Respiratory (brief) Respiratory: FOUND: clear all whitten, equal bilaterally, symmetrical Cardiovascular (brief) Cardiac: FOUND: regular rate, regular rhythm Abdomen (brief) Abdominal Brief: FOUND: bowel normo active x4, soft, NOT FOUND: distended, tender Musculoskeletal (brief) Musculoskeletal Brief: NOT FOUND: deformity, tenderness Integumentary (brief) Integumentary Brief: FOUND: dry, pink, warm Neurologic (brief) Neurological Brief: FOUND: CN w/o gross def to obs Neurologic Mental Status: FOUND: alert, oriented Cranial Nerves: NOT FOUND: facial asymmetry Motor : Motor Side: bilateral Motor Location: foot extension, foot flexion, ict business development manager strength Motor Degree: 5 Sensation: FOUND: soft touch intact x4 ext Cerebellar: FOUND: tandem walk DTR's : DTR Side: bilateral DTR Location: Triceps DTR Grade: 2+ Psychiatric (brief) Psychiatric Brief: FOUND: normal affect Differential Diagnoses Considering: Cervical Strain, Dental Caries, Headache - Migraine, Headache - Tension/Muscle, Hypertensive Emergency, Sinusitis - Sphenoid, Sinusitis - Frontal, Viral Syndrome Progress Results/Orders Orders Procedure Category Date Status Time Promethazine PHA 11/24/16 Complete (Phenergan) 15:15 Ketorolac (Toradol) PHA 11/24/16 Complete 15:15 Medications Current ED Medications Promethazine HCl (Phenergan) 25 mg O ONCE IM Last administered on 11/24/16 15 :14; Start 11/24/16 at 15:15; Stop 11/24/16 at 15:16; Status DC Ketorolac Tromethamine (Toradol) 60 mg O ONCE IM Last administered on t 15:16; Start 11/24/16 at 15:15; Stop 11/24/16 at 15:16; Status DC Progress Progress Patient declines any narcotic pain medication. Patient reports improvement of nausea, headache and is ready to go home. I discussed treatment plan, close follow up with PCP and return precautions which patient verbalized understanding. CLARA RITCHIE APRN Nov 24, 2016 15:01
--- OUTSIDE RECORDS SUMMARY | 2016-11-24 15:12 | XMS REPORT | Continuity of Care Document ---
Author Author [facility] Organization [facility] Address Unknown Phone Unavailable Allergies Active Description Code Type Severity Reaction Onset Reported/Identified Relationship to Patient Clinical Status Yes No Known Allergies No Known Allergies Drug Allergy Unknown N/A 09/11/2014 Medications Problems Date Dx Coded Attending Type Code Diagnosis Diagnosed By 08/18/2014 Marcela Meléndez V76.12 OTH SCREEN MAMMO-MALIGN NEOPLASM OF BREAST 09/11/2014 Stephen Rojo W 034.0 STREP SORE THROAT 09/11/2014 Stephen [...] Status Pt. Type Provider Facility Loc./Unit Complaint [id number] 09/22/2013 10:41:00 09/22/2013 23 :59:59 C[facility] Outpatient
[2016-11-24] MEDS ORDERED: KETOROLAC 60mg/2ml INJECTION IM ONE (15:15)
[2016-11-24] MEDS ORDERED: PROMETHAZINE 25 MG INJECTION IM ONE (15:15)
[2016-11-24 15:55] VITALS: BP 118/58; PULSE 74; RESP 16; O2SAT 98
--- NOTE | 2016-11-24 15:55 | NUR ---
DEPART VERBAL AND WRITTEN DISCHARGE INSTRUCTIONS GIVEN AND UNDERSTOOD. CONDITION STABLE. RELEASED AMBULATORY FROM ER.
== END 2016-11-24 15:55 | disposition home or self-care (01) ==
LOC: ED 14:03
DX: G43.109 Migraine with aura, not intractable, without status migrainosus (principal)
CPT/HCPCS: 96372; 99283; J1885; J2550

== ENCOUNTER 2017-01-05 06:55 | Emergency (ER) | payer BC ==
[~2017-01-05] VITALS: Ht 170.2 cm; Wt 98.9 kg
[~2017-01-05 06:55] MED LIST changes: -AMOX-351 PO; -CIPR-212 PO; +ONDA4TAB7 PO
[2017-01-05 06:58] VITALS: Ht 170.2 cm; Wt 98.9 kg
--- NOTE | 2017-01-05 07:07 | NUR ---
PROVIDER MAY TO SEE PT
--- NOTE | 2017-01-05 07:11 | ERPDOC ---
Departure Disposition Decision Date: January 05, 2017 Disposition Decision Time: 07:49 Disposition: 01 DISCHARGED HOME, SELF-CARE Impression Impression Impression: Primary Impression: Migraine Qualified Codes: G43.111 - Migraine with aura, intractable, with status migrainosus Severity: Severe Condition: Improved Seen By: Physician only Referrals: SANJAY SOSA MD (Family) 1 Week Patient Instructions: Migraine Headache (ED) Problems/Meds/Labs Reviewed?: Yes Medications reviewed and manag: Yes Additional Instructions: We have treated your migraine headache. Follow up with your doctor in the next week. As frequently as you have headaches, consider discussing with your doctor a medication to prevent your headaches. Follow up care ordered?: Yes Mental Status: Alert, Oriented HPI - Headache General Stated Complaint: MIGRAINE, N/V Time Seen by Provider: 06:56 Source: patient Exam Limitations: no limitations HPI - Headache Initial Comments 46yo woman presents to the ER today with a headache. Pt has a h/o migraine HAs; takes no prophylactic meds, but has maxalt. Maxalt is usually effective at treating her HAs, if she takes it in time; did not get to the med in time today. Sx are typical of her migraine (frontal/temporal, retro-orbital on the left, photo and phonophobia with associated nausea/vomiting). Pt has tried to take zofran for nausea, but vomited the medication. Typically receives IM toradol and phenergan with good relief of sx. Occurred At: home Onset: Gradual Duration: 4-6 hrs Pain Scale: Now & Worst: 10/10 Severity/Quality: severe, throbbing Location: frontal, temporal Prior Headaches/Recent Trauma: frequent headaches Modifying Factors: immobilization, rest, No: exposure to light, movement Associated Symptoms: fatigue, nausea/vomiting Hx of Similar Symptoms: Yes Allergies: Coded Allergies: prochlorperazine (Verified Allergy, Unknown, 01/05/17) Past History Past Medical History GI: GERD Female: UTI, kidney stones Neurological: headaches, migraines Surgical History Reproductive/: hysterectomy, other Family History Family PMH: FOUND: other Vaccines Hx Influenza Vaccination: Yes (08) Hx Pneumococcal Vaccination: Yes (CURRENTLY) Social History Substance Use Type: does not use Alcohol Intake: none Sexuality: male partner Review of Systems GI Upper Abdomen: nausea, vomiting Neurological General: headache All other Systems All Other Systems: Reviewed and Negative Physical Exam General General Nourishment: well nourished, well developed, appears stated age, no acute distress, adult General Body Habitus: well groomed Vitals and Pain First Documented Vital Signs Date Time Temp Pulse Resp B/P Pulse Ox O2 Delivery O2 Flow Rate FiO2 01/05/17 06:58 97.4 75 14 114/59 95 Room Air Weight: Kilograms: Height (feet): 5 Height (inches): 7.00 Triage Pain Scale: RN VS reviewed by Provider: Yes Neurologic (brief) Neurological Brief: FOUND: CN w/o gross def to obs, DTR 2/4 all extremities, gait w/o gross def to obs, motor-no gross deficits, sensory-no gross deficits, NOT FOUND: Babinski Neurologic Mental Status: FOUND: alert, oriented Cranial Nerves: FOUND: extraocular movements, forehead movement, NOT FOUND: facial asymmetry Unusual Movements: NOT FOUND: chorea, tremor Sensation: FOUND: soft touch intact x4 ext Supervisory Exam Head: atraumatic Eyes: PERRL Nares: no exudate Neck: trachea midline Chest: symmetric Abdomen: non-distended Musculoskeletal: no deformity or atrophy Skin: pink, dry Psychological: alert, appropriate Differential Diagnoses Considering: Headache, Headache - Migraine, Headache - Tension/Muscle, Sinusitis - Sphenoid, Sinusitis - Maxillary, Sinusitis - Frontal, Viral Syndrome , Vomiting Progress Results/Orders Orders Procedure Category Date Status Time Ketorolac (Toradol) PHA 01/05/17 Complete 07:15 Promethazine PHA 01/05/17 Complete (Phenergan) 07:30 Medications Current ED Medications Ketorolac Tromethamine (Toradol) 60 mg O ONCE IM Last administered on 07:16; Start 01/05/17 at 07:15; Stop 01/05/17 at 07:16; Status DC Promethazine HCl (Phenergan) 25 mg O ONCE IV ; Start 01/05/17 at 07:15; Stop 01/05/17 at 07:16; Status Cancel Promethazine HCl (Phenergan) 25 mg O ONCE IM Last administered on 01/05/17 07: 25; Start 01/05/17 at 07:30; Stop 01/05/17 at 07:31; Status DC Progress Progress Marked improvement in all of pts sx following IM injections. Pts pain is now down to a 4/10; requests d/c to home to sleep. Discussed dx, prognosis, and tx; pt voiced understanding. Will need to f/u with PCM. ISAAC CONDE DO January 05, 2017 07:11 ISAAC CONDE DO January 05, 2017 07:11
[2017-01-05] MEDS ORDERED: PROMETHAZINE 25 MG INJECTION IV ONE (07:15)
[2017-01-05] MEDS ORDERED: KETOROLAC 60mg/2ml INJECTION IM ONE (07:15)
[2017-01-05] MEDS ORDERED: PROMETHAZINE 25 MG INJECTION IM ONE (07:30)
--- NOTE | 2017-01-05 07:45 | NUR ---
COMFORT PT REPORTS HEADACHE 4-5/10
[2017-01-05 07:55] VITALS: BP 110/60; PULSE 78; RESP 14; TEMP 97.4; O2SAT 97
--- NOTE | 2017-01-05 07:55 | NUR ---
DISMISSAL DISMISSAL INSTRUCTIONS TO PT WITHOUT FURTHER QUESTIONS. PT LEFT DEPARTMENT AMBULATORY WITH BROTHER
[2017-01-05] MEDS ORDERED: LEVO25TA9 PO (07:59)
[2017-01-05] MEDS ORDERED: NALT1TAB PO (07:59)
== END 2017-01-05 07:55 | disposition home or self-care (01) ==
LOC: ED 06:55
DX: G43.111 Migraine with aura, intractable, with status migrainosus (principal)
CPT/HCPCS: 96372; 99283; J1885; J2550